=== PATIENT | female | born 1940 | race Caucasian/White ===

== ENCOUNTER → 2017-08-25 | Outpatient (CLI) | payer MEDICARE, OTHER | END | disposition home or self-care (01) | LOC: LAB SHORT 08:04 → PLD 08:04 | DX: C44.629 Squamous cell carcinoma of skin of left upper limb, including shoulder (principal) | CPT/HCPCS: 88305 ==

== ENCOUNTER → 2018-10-26 | Outpatient (CLI) | payer MEDICARE, OTHER ==
[~2018-10-26] MED LIST: BUPR150ER PO; CHOL10002 PO; CLOBETASOL EMU100 GM; ESCI20 PO; LITH300C PO; OXYC10ER; Primalev 5-3001 EACH; RABE20 PO; RISP.5 PO
[2018-10-26 10:11] LABS: Source, Urine Clean Catch
[2018-10-26 13:02] LABS: Bilirubin, Urine Neg (Neg); Blood, Urine 3+ (Neg); Glucose Qualitative, Urine Neg (Neg); Ketones, Urine Neg (Neg); Leukocyte Esterase, Urine 1+ (Neg); Nitrite, Urine Neg (Neg); Protein, Urine Neg (Neg); Urobilinogen, Urine 1+ (Normal)
[2018-10-26 13:13] LABS: Appearance, Urine Clear (Clear); Color, Urine Yellow (P-Yellow)
[2018-10-26 13:15] LABS: Squamous Epithelial Cells Not Seen /hpf (Few)
[2018-10-26 13:16] LABS: Amorphous Light (0-Heavy); Bacteria Mod /hpf; Mucus Mod (0-Heavy); Transitional Epithelial Cells Rare /hpf (0-Rare)
[2018-10-26 13:39] LABS: Microalb/Creat Ratio UR, Rand 8.518 mg/g (0.000-30.000); Microalbumin, Random Urine 9.71 mg/L (0.000-20.000)
== END | disposition home or self-care (01) ==
LOC: LAB SHORT 10:10 → LAB 10:10
PROVIDERS: Internal Medicine
DX: N18.3 Chronic kidney disease, stage 3 (moderate) (principal); N39.46 Mixed incontinence
CPT/HCPCS: 81001; 82043; 82570; 87086

== ENCOUNTER 2018-11-09 00:24 | Day surgery (SDC) | payer MEDICARE, OTHER ==
[2018-11-09] MEDS ORDERED: OXYC10ER (11:16)
[2018-11-09] MEDS ORDERED: Primalev 5-3001 EACH (11:17)
[2018-11-09] MEDS ORDERED: ESCI20 PO (11:18)
[2018-11-09] MEDS ORDERED: RISP.5 PO (11:18)
[2018-11-09] MEDS ORDERED: BUPR150ER PO (11:18)
[2018-11-09] MEDS ORDERED: CHOL10002 PO (11:19)
[2018-11-09] MEDS ORDERED: LITH300C PO (11:19)
[2018-11-09] MEDS ORDERED: RABE20 PO (11:19)
[2018-11-09] MEDS ORDERED: CLOBETASOL EMU100 GM (11:20)
--- NOTE | 2018-11-09 11:23 | NUR ---
BLADDER SCAN: PT DRANK 50CC OF WATER, PT HAD 150ML (AVERAGE OF 3 SCANS) IN BLADDER, VOIDED CLEAR YELLOW URINE, PT WAS SCANNED POST AND HAD 20ML (AVERAGE OF 3 SCANS) LEFT IN BLADDER, PT STATES SHE HAS BEEN EXPERIENCING EXTREME DIZZINESS FOR A LONG TIME AND STATES THAT SHE HAS MADE DOCTORS AWARE. PTS VITALS WERE 125\45. HOWEVER, PT STATES THAT SHE IS ALWAYS LOW. 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 DR PAREDES CAN YOU PLEASE FOLLOW UP WITH PT REGARDING HER HYPOTENSION AND DIZZINESS....
== END 2018-11-09 10:50 | disposition home or self-care (01) ==
LOC: ATC 00:24
DX: N39.46 Mixed incontinence (principal); N18.3 Chronic kidney disease, stage 3 (moderate); F31.9 Bipolar disorder, unspecified; G89.29 Other chronic pain; M54.5 Low back pain; I08.1 Rheumatic disorders of both mitral and tricuspid valves; Z96.9 Presence of functional implant, unspecified
CPT/HCPCS: 51798

== ENCOUNTER → 2018-11-18 | Outpatient (CLI) | payer MEDICARE, OTHER | END | disposition home or self-care (01) | LOC: LAB SHORT 10:50 → PLD 10:50 | DX: L57.0 Actinic keratosis (principal) | CPT/HCPCS: 88305 ==

== ENCOUNTER → 2020-05-18 | Outpatient (CLI) | payer MEDICARE, OTHER ==
[2020-05-18 15:08] LABS: Appearance, Urine Clear (Clear); Bilirubin, Urine Neg (Neg); Blood, Urine 2+ (Neg); Color, Urine Yellow (P-Yellow); Glucose Qualitative, Urine Neg (Neg); Ketones, Urine Neg (Neg); Leukocyte Esterase, Urine 2+ (Neg); Nitrite, Urine Neg (Neg); Protein, Urine Neg (Neg); Urobilinogen, Urine NORM (Normal)
[2020-05-18 15:22] LABS: Bacteria Few /hpf; Squamous Epithelial Cells Few /hpf (Few)
== END | disposition home or self-care (01) ==
LOC: LAB 08:30 → LAB SHORT 08:30 → LAB FUT 05-17 09:00
PROVIDERS: Internal Medicine
DX: N39.46 Mixed incontinence (principal)
CPT/HCPCS: 81001; 87086

== ENCOUNTER → 2020-06-15 | Outpatient (CLI) | payer MEDICARE, OTHER ==
[2020-06-15 15:38] LABS: Source, Urine Clean Catch
[2020-06-15 17:53] LABS: Appearance, Urine Clear (Clear); Bilirubin, Urine Neg (Neg); Blood, Urine 4+ (Neg); Color, Urine Amber (P-Yellow); Glucose Qualitative, Urine Neg (Neg); Ketones, Urine 1+ (Neg); Leukocyte Esterase, Urine 2+ (Neg); Nitrite, Urine Neg (Neg); Protein, Urine 1+ (Neg); Urobilinogen, Urine 1+ (Normal)
[2020-06-15 18:04] LABS: Squamous Epithelial Cells Few /hpf (Few)
[2020-06-15 18:05] LABS: Bacteria Mod /hpf; Hyaline Casts 0-2 /lpf (0-2)
== END | disposition home or self-care (01) ==
LOC: LAB SHORT 12:53 → LAB 12:53 → LAB FUT 05-22 08:30
PROVIDERS: Internal Medicine
DX: N39.0 Urinary tract infection, site not specified (principal); R82.90 Unspecified abnormal findings in urine
CPT/HCPCS: 81001; 87086

== ENCOUNTER → 2020-07-04 | Outpatient (CLI) | payer MEDICARE, OTHER | END | disposition home or self-care (01) | LOC: LAB 12:58 → LAB SHORT 12:58 | DX: D48.5 Neoplasm of uncertain behavior of skin (principal) | CPT/HCPCS: 88305 ==

== ENCOUNTER → 2020-09-21 | Outpatient (CLI) | payer MEDICARE, OTHER | END | disposition home or self-care (01) | LOC: LAB SHORT 09:58 → LAB 09:58 | DX: R30.0 Dysuria (principal) | CPT/HCPCS: 87077; 87086; 87186 ==

== ENCOUNTER → 2020-12-03 | Outpatient (CLI) | payer MEDICARE, OTHER ==
[2020-12-03 10:52] LABS: Source, Urine Clean Catch
[2020-12-03 13:12] LABS: Appearance, Urine Clear (Clear); Bilirubin, Urine Neg (Neg); Blood, Urine 4+ (Neg); Color, Urine Yellow (P-Yellow); Glucose Qualitative, Urine Neg (Neg); Ketones, Urine Neg (Neg); Leukocyte Esterase, Urine 1+ (Neg); Nitrite, Urine Neg (Neg); Protein, Urine Neg (Neg); Urobilinogen, Urine 1+ (Normal); pH, Urine 6.5 (5.0-8.0)
[2020-12-03 13:30] LABS: Bacteria Mod /hpf; Squamous Epithelial Cells Rare /hpf (Few); White Blood Cells, Urine 0-2 /hpf (0-5)
== END | disposition home or self-care (01) ==
LOC: LAB 10:38 → LAB SHORT 10:38 → EDSTATUS 15:33
PROVIDERS: Internal Medicine
DX: R35.0 Frequency of micturition (principal)
CPT/HCPCS: 81001; 87086

== ENCOUNTER → 2021-07-10 | Outpatient (CLI) | payer MEDICARE, OTHER | END | disposition home or self-care (01) | LOC: PLD 12:08 → LAB SHORT 12:08 | DX: C44.1192 Basal cell carcinoma of skin of left lower eyelid, including canthus (principal); C44.712 Basal cell carcinoma of skin of right lower limb, including hip | CPT/HCPCS: 88305 ==

== ENCOUNTER → 2022-04-14 | Outpatient (CLI) | payer MEDICARE, OTHER ==
[2022-04-14 09:37] LABS: Source, Urine Clean Catch
[2022-04-14 13:16] LABS: Appearance, Urine Hazy (Clear); Bilirubin, Urine Neg (Neg); Blood, Urine 4+ (Neg); Color, Urine Yellow (P-Yellow); Glucose Qualitative, Urine Neg (Neg); Ketones, Urine Neg (Neg); Leukocyte Esterase, Urine 1+ (Neg); Nitrite, Urine Neg (Neg); Protein, Urine 1+ (Neg); Specific Gravity, Urine 1.015 (1.003-1.022); Urobilinogen, Urine 1+ (Normal)
[2022-04-14 13:45] LABS: Bacteria Rare /hpf; Squamous Epithelial Cells Few /hpf (Few)
== END ==
LOC: LAB SHORT 09:35 → LAB 09:35
PROVIDERS: Internal Medicine
DX: N39.0 Urinary tract infection, site not specified (principal)
CPT/HCPCS: 81001; 87086

== ENCOUNTER → 2022-12-01 | Outpatient (CLI) | payer MEDICARE, OTHER | LOC: LAB SHORT 11:05 → LAB 11:05 | DX: N39.0 Urinary tract infection, site not specified (principal) | CPT/HCPCS: 87086 ==

== ENCOUNTER → 2023-05-30 | Outpatient (CLI) | payer MEDICARE, OTHER | LOC: LAB 08:01 → LAB SHORT 08:01 | DX: R30.0 Dysuria (principal); R31.9 Hematuria, unspecified; R35.0 Frequency of micturition | CPT/HCPCS: 87086 ==

== ENCOUNTER → 2023-09-27 | Outpatient (CLI) | payer MEDICARE, OTHER | LOC: LAB 16:36 → LAB SHORT 16:36 | DX: N39.0 Urinary tract infection, site not specified (principal) | CPT/HCPCS: 87077; 87086; 87186 ==

== ENCOUNTER → 2023-10-16 | Outpatient (CLI) | payer MEDICARE, OTHER | END | disposition home or self-care (01) | LOC: LAB 13:36 → LAB SHORT 13:36 | DX: N39.0 Urinary tract infection, site not specified (principal) | CPT/HCPCS: 87086 ==